=== PATIENT | female | born 1975 | race Caucasian/White ===

== ENCOUNTER → 2023-10-11 06:22 | Day surgery (SDC) | payer BC, SELFPAY | LOC: GI 06:22 | PROVIDERS: ATTENDING PHYSICIAN Internal Medicine Gastroenterology | DX: Z12.11 Encounter for screening for malignant neoplasm of colon (principal); K51.00 Ulcerative (chronic) pancolitis without complications; K64.8 Other hemorrhoids | CPT/HCPCS: 45380; 88305 ==